=== PATIENT | female | born 1985 | race Caucasian/White ===

== ENCOUNTER 2020-02-29 12:18 | Emergency (ER) | payer OTHER ==
[~2020-02-29] VITALS: Ht 170.2 cm; Wt 80.3 kg
[2020-02-29] MEDS ORDERED: TETANUS-DIPTH-ACEL PERTUSSIS 0.5ML SYR Tdap IM ONE (13:45)
[2020-02-29] MEDS ORDERED: RABIES VIRUS VACCINE, HDC 2.5 UNIT/ML ML IM ONE (13:54)
[2020-02-29] MEDS ORDERED: cefTRIAXone SOD 1,000 MG VL ONE (13:55)
[2020-02-29] MEDS ORDERED: LIDOCAINE 2% (LOCAL ANESTH.) PF 5ml SDV ONE (13:57)
[2020-02-29] MEDS ORDERED: RABIES VACCINE (PCEC)/PF 2.5 UNITS IM ONE (14:00)
[2020-02-29] MEDS ORDERED: cefTRIAXone W LIDOCAINE 1 GM IM IM ONE (14:00)
[2020-02-29 14:07] VITALS: BP 105/75
== END 2020-02-29 13:49 | disposition home or self-care (01) ==
LOC: ER 12:18
DX: S61.251A Open bite of left index finger without damage to nail, initial encounter (principal); L03.012 Cellulitis of left finger; Z90.49 Acquired absence of other specified parts of digestive tract; W53.21XA Bitten by squirrel, initial encounter; Y93.89 Activity, other specified; Y92.89 Other specified places as the place of occurrence of the external cause; Y99.8 Other external cause status
CPT/HCPCS: 90471; 90472; 90675; 90715; 96372; 99284; J0696; J2001

== ENCOUNTER 2020-03-04 19:41 | Emergency (ER) | payer OTHER ==
[~2020-03-04] VITALS: Ht 170.2 cm; Wt 79.8 kg
[2020-03-05] MEDS ORDERED: KETOROLAC TROMETH 60MG/2ML VIAL IM ONE ×2 (01:15→01:30)
[2020-03-05 01:35] VITALS: BP 138/84
== END 2020-03-05 01:44 | disposition home or self-care (01) ==
LOC: EDBD 19:41 → ER 19:41
DX: S89.82XA Other specified injuries of left lower leg, initial encounter (principal); M79.605 Pain in left leg; Z88.2 Allergy status to sulfonamides; Z87.440 Personal history of urinary (tract) infections; Z90.49 Acquired absence of other specified parts of digestive tract; W22.8XXA Striking against or struck by other objects, initial encounter; Y93.01 Activity, walking, marching and hiking; Y92.89 Other specified places as the place of occurrence of the external cause; Y99.8 Other external cause status
CPT/HCPCS: 73590; J1885